=== PATIENT | female | born 1990 ===

== ENCOUNTER 2023-02-03 13:44 | Inpatient (IN) | payer OTHER ==
[~2023-02-03] VITALS: Ht 165.1 cm; Wt 71.7 kg
[2023-02-04] MEDS ORDERED: PRENATABS RX T1 EACH PO (09:12)
== END 2023-02-05 10:46 | disposition home or self-care (01) | DRG 807 ==
LOC: LDR 13:44 → SURH 02-04 17:13 → SURG 02-04 21:55
PROVIDERS: ADMIT Obstetrics & Gynecology Gynecology; ATTEND Obstetrics & Gynecology Gynecology
PROC: 3E0P7VZ Introduction of Hormone into Female Reproductive, Via Natural or Artificial Opening (ICD-10-PCS; 2023-02-03)
PROC: 4A1HXCZ Monitoring of Products of Conception, Cardiac Rate, External Approach (ICD-10-PCS; 2023-02-03)
PROC: 10E0XZZ Delivery of Products of Conception, External Approach (ICD-10-PCS; principal; 2023-02-04)
DX: O36.4XX0 Maternal care for intrauterine death, not applicable or unspecified (principal); Z37.1 Single stillbirth; Z3A.24 24 weeks gestation of pregnancy; Z20.822 Contact with and (suspected) exposure to COVID-19

== ENCOUNTER 2024-03-16 12:30 | Outpatient (CLI) | payer OTHER ==
[~2024-03-16 12:30] MED LIST: PRENATABS RX T1 EACH PO
== END 2024-03-16 13:37 | disposition home or self-care (01) ==
LOC: NST 12:30
PROVIDERS: ATTEND Obstetrics & Gynecology Gynecology
DX: Z34.83 Encounter for supervision of other normal pregnancy, third trimester (principal)

== ENCOUNTER 2024-04-13 12:37 | Outpatient (CLI) | payer OTHER | END 2024-04-13 13:33 | disposition home or self-care (01) | LOC: NST 12:37 | PROVIDERS: ATTEND Obstetrics & Gynecology Maternal & Fetal Medicine | DX: Z34.83 Encounter for supervision of other normal pregnancy, third trimester (principal) ==

== ENCOUNTER 2024-05-04 10:45 | Outpatient (CLI) | payer OTHER | END 2024-05-04 11:53 | disposition home or self-care (01) | LOC: NST 10:45 | PROVIDERS: ATTEND Obstetrics & Gynecology Maternal & Fetal Medicine | DX: Z34.83 Encounter for supervision of other normal pregnancy, third trimester (principal) ==

== ENCOUNTER 2024-05-14 08:29 | Outpatient (CLI) | payer OTHER | END 2024-05-14 08:53 | disposition home or self-care (01) | LOC: NST 08:29 | PROVIDERS: ATTEND Obstetrics & Gynecology | DX: Z34.83 Encounter for supervision of other normal pregnancy, third trimester (principal) ==

== ENCOUNTER 2024-05-19 07:39 | Inpatient (IN) | payer OTHER ==
[~2024-05-19] VITALS: Ht 165.1 cm; Wt 3.6 kg
[2024-05-19 08:40] VITALS: BP 109/58
[2024-05-19 09:28] LABS: HEMATOCRIT 38.7 % (36.0-45.00); MEAN CELL VOLUME 81.3 fL (80.00-100.00); MEAN CORPUSCULAR HEMOGLOBIN 27.3 pg (27.00-32.0); MEAN CORPUSCULAR HGB CONC 33.6 g/dl (32.0-36.0); PLATELET COUNT 144 K/uL (150-450); RED BLOOD COUNT 4.76 M/uL (4.00-6.00); RED CELL DISTRIBUTION WIDTH 15.6 % (11.5-14.5)
[2024-05-19 09:52] LABS: INR < 0.93; PARTIAL THROMBOPLASTIN TIME 27.1 SECONDS (22.0-34.0); PROTHROMBIN TIME 9.7 SECONDS (9.0-11.5)
[2024-05-19 10:31] LABS: ALBUMIN 2.7 gm/dL (3.4-5.0); BILIRUBIN TOTAL 0.31 mg/dL (0.3-1.2); CALCIUM 9.6 mg/dL (8.5-10.1); CREATININE SERUM 0.61 mg/dL (0.55-1.02); GFR 111.61; GLOBULINA 3.6 G/DL (2.4-3.5); POTASSIUM 4.28 mEq/L (3.5-5.1); TOTAL PROTEIN 6.3 gm/dL (6.4-8.2)
[2024-05-19 11:53] VITALS: BP 110/71
[2024-05-19] MEDS ORDERED: MORPHINE SULFATE 4 MG/ML VIAL IV ONE (12:30)
[2024-05-19 12:32] VITALS: BP 115/63
[2024-05-19 15:43] VITALS: BP 113/68; O2SAT 100
[2024-05-19] MEDS ORDERED: PROMETHAZINE HCL 25 MG/ML AMPUL IV ONE (20:15)
[2024-05-19] MEDS ORDERED: MORPHINE SULFATE 4 MG/ML VIAL IV SCH (21:32)
[2024-05-19] MEDS ORDERED: KETOROLAC TROMETHAMINE 30 MG VIAL IV SCH (21:32)
[2024-05-19] MEDS ORDERED: OXYTOCIN 1,000 ML IV ONE (21:45)
[2024-05-19] MEDS ORDERED: CEFAZOLIN SODIUM 1,000 MG VIAL IV ONE (23:15)
[2024-05-19] MEDS ORDERED: OXYTOCIN 10 UNITS/ML VIAL IV ONE (23:15)
[2024-05-19] MEDS ORDERED: ERYTHROMYCIN BASE OPHT 1GM EACH TUBE OP ONE (23:15)
[2024-05-20 03:43] VITALS: BP 124/77; O2SAT 99
[2024-05-20] MEDS ORDERED: ACETAMINOPHEN 500 MG GEL..CAP PO SCH (06:00)
[2024-05-20 07:20] LABS: HEMOGLOBIN 11.5 g/dL (12.0-15.00); MEAN CELL VOLUME 83.3 fL (80.00-100.00); MEAN CORPUSCULAR HEMOGLOBIN 27.4 pg (27.00-32.0); MEAN CORPUSCULAR HGB CONC 32.9 g/dl (32.0-36.0); PLATELET COUNT 133 K/uL (150-450); RED CELL DISTRIBUTION WIDTH 15.5 % (11.5-14.5)
[2024-05-20 08:33] VITALS: BP 112/75
[2024-05-20] MEDS ORDERED: PNV,CALCIUM 72/IRON/FOLIC ACID 1 TAB TABLET PO SCH (09:00)
[2024-05-20] MEDS ORDERED: GABAPENTIN 300 MG CAPSULE PO SCH (09:00)
[2024-05-20] MEDS ORDERED: SIMETHICONE 125 MG CAPSULE PO SCH (09:00)
[2024-05-20] MEDS ORDERED: DOCUSATE SODIUM 100MG CAP PO SCH (09:00)
[2024-05-20] MEDS ORDERED: IBUprofen 600 MG TABLET PO SCH (12:00)
[2024-05-20 16:13] VITALS: BP 118/73
[2024-05-21 00:28] VITALS: BP 106/69; O2SAT 99
[2024-05-21 08:50] VITALS: BP 108/72
[2024-05-21 16:00] VITALS: BP 122/79
[2024-05-22] VITALS: BP 116/74
[2024-05-22 09:00] VITALS: BP 100/69
[2024-05-22] MEDS ORDERED: KETO10TA2 PO (09:46)
[2024-05-22] MEDS ORDERED: PERCOCET 5-3251 EACH PO (09:47)
== END 2024-05-22 16:39 | disposition home or self-care (01) | DRG 788 ==
LOC: LDR 07:39 → OB/GYN 08:14 → LDR 08:49 → OB/GYN 21:39
PROVIDERS: Obstetrics & Gynecology Gynecology; ADMIT Obstetrics & Gynecology Maternal & Fetal Medicine; ATTEND Obstetrics & Gynecology Maternal & Fetal Medicine
PROC: 4A1HXCZ Monitoring of Products of Conception, Cardiac Rate, External Approach (ICD-10-PCS; 2024-05-19)
PROC: 10D00Z1 Extraction of Products of Conception, Low, Open Approach (ICD-10-PCS; principal; 2024-05-19 20:30)
DX: O82 Encounter for cesarean delivery without indication (principal); O62.1 Secondary uterine inertia; Z3A.39 39 weeks gestation of pregnancy; Z37.0 Single live birth; Z20.822 Contact with and (suspected) exposure to COVID-19